=== PATIENT | male | born 1960 | race Caucasian/White ===

== ENCOUNTER 2017-08-26 11:04 | Day surgery (SDC) | payer BC ==
[~2017-08-26 11:04] MED LIST: BUPIVACAINE 0.25% INJ 30 ML VIAL INJ ONE; LACTATED RINGERS 1,000 ML ONE; LIDOCAINE 1% 10 ML VIAL INJ ONE; LIDOCAINE 1% 50 ML VIAL INJ ONE; PROPOFOL 200 MG/20 ML VIAL IV ONE; SODIUM CHL 0.9% 100ML MINI-BAG 100 ML IVPB ONE; ceFAZolin SODIUM 1 GM VIAL ONE
[2017-08-26] MEDS: ceFAZolin SODIUM 1 GM VIAL ONE ×2 (13:11→13:13)
[2017-08-26] MEDS: VANCOMYCIN HCL INJ 1,000 MG VIAL IVPB ONE ×2 (13:11→13:13)
[2017-08-26 14:20] VITALS: O2SAT 100
[2017-08-26 14:21] VITALS: BP 144/83; TEMP 97.9
--- NOTE | 2017-08-27 08:35 | OP ---
DATE OF PROCEDURE: 08/26/17 PREOPERATIVE DIAGNOSIS: 1. Carpal tunnel syndrome. POSTOPERATIVE DIAGNOSIS: 1. Carpal tunnel syndrome. PROCEDURE: 1. Carpal tunnel release. SURGEON: Adilson Doyle MD. WET SUIT GLUER: Antonino Sweet CST, SA-C. ANESTHESIA: Local with sedation. COMPLICATIONS: None. FINDINGS: Severe thickening of the transverse carpal ligament. INDICATION: Mr. Abdullahi has a history of both pain and numbness affecting the hand and digits. He requested operative intervention. After discussing the risks, benefits and alternatives to that, the patient has given informed consent for carpal tunnel release. PROCEDURE: The patient was brought to the Operating Room and placed in the supine position. Sedation was administered and local anesthetic was injected into the operative area under sterile conditions. After the injection of anesthetic, the arm was sterilely prepped and draped. A longitudinal incision was made directly overlying the transverse carpal ligament and blunt dissection was carried down to the ligament. The transverse carpal ligament was sharply transected along its length and a [place] elevator was used to ensure complete release of the ligament. Once release had been confirmed, the wound was thoroughly irrigated and the wound was closed with Nylon suture. A sterile dressing was placed and the patient was taken to the Day Surgery Unit. POSTOPERATIVE INSTRUCTIONS: The patient has been encouraged to do range of motion of the digits and will followup with us in two days. #[id number] [facility] CENTERIleana
== END 2017-08-26 14:00 | disposition home or self-care (01) ==
LOC: AMB 11:04
PROVIDERS: ATTEND Orthopaedic Surgery
DX: G56.01 Carpal tunnel syndrome, right upper limb (principal); I25.10 Atherosclerotic heart disease of native coronary artery without angina pectoris; I25.2 Old myocardial infarction; G47.30 Sleep apnea, unspecified; K21.9 Gastro-esophageal reflux disease without esophagitis; M21.40 Flat foot [pes planus] (acquired), unspecified foot; M20.10 Hallux valgus (acquired), unspecified foot; M13.879 Other specified arthritis, unspecified ankle and foot; M12.839 Other specific arthropathies, not elsewhere classified, unspecified wrist; Z95.5 Presence of coronary angioplasty implant and graft; Z79.899 Other long term (current) drug therapy
CPT/HCPCS: 01810; 64721; J0690; J3370; J3490; J7050; J7120

== ENCOUNTER → 2017-11-14 | Outpatient (CLI) | payer BC ==
--- NOTE | 2017-11-14 13:24 | RAD ---
EXAM DESCRIPTION: Ankle,Left 3 Views CLINICAL HISTORY: 57 years, Male, PAIN IN LEFT ANKLE AND JOINTS OF LEFT FOOT COMPARISON: Previous study August 11, 2017 TECHNIQUE: AP/lateral/oblique of the Right or left ankle FINDINGS: Casted views of the left ankle are submitted. Plate and screws are seen through distal fibular fracture. 2 mm gap at the fracture site with some early callus formation. Anatomic alignment at the ankle joint. Screws are seen through the talus and calcaneus and multiple screws are seen in the proximal metatarsals. Prominent dorsal plantar calcaneal enthesophyte. IMPRESSION: Orthopedic hardware in the mid foot hindfoot and left ankle. Electronically signed by: Ede Sotomayor MD 11/14/2017 1:23 PM CDT
--- NOTE | 2017-11-14 13:24 | RAD ---
EXAM DESCRIPTION: Foot,Left 3 Views CLINICAL HISTORY: PAIN IN LEFT FOOT COMPARISON: None. IMPRESSION: 3 views of the left foot show plate and screw fixation of the distal fibula. There are 2 orthopedic screws fixating the posterior talus and calcaneus. Multiple plate and screws are seen fixating the first and second metatarsals to the medial and middle cuneiform bones. Fiberglass cast is seen in place obscuring fine bone detail. Plantar enthesophyte of the calcaneus is seen. 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 Mild osteoarthritic changes of the first metatarsophalangeal joint. Electronically signed by: Jb Willard MD 11/14/2017 1:23 PM CDT
== END ==
LOC: RAD 09:04
PROVIDERS: ATTEND Orthopaedic Surgery
DX: S82.832D Other fracture of upper and lower end of left fibula, subsequent encounter for closed fracture with routine healing (principal); M77.32 Calcaneal spur, left foot; M19.072 Primary osteoarthritis, left ankle and foot; Z98.890 Other specified postprocedural states